=== PATIENT | male | born 1980 | race Caucasian/White ===

== ENCOUNTER 2016-09-25 18:00 | Emergency (ER) | payer OTHER, BC ==
[~2016-09-25] VITALS: Ht 180.3 cm; Wt 67.1 kg
[2016-09-25] MEDS ORDERED: PENTASA500 MG PO (18:12)
== END 2016-09-25 18:34 | disposition home or self-care (01) ==
LOC: ED 18:00
DX: Z04.3 Encounter for examination and observation following other accident (principal); Z88.8 Allergy status to other drugs, medicaments and biological substances; Z79.899 Other long term (current) drug therapy; V89.2XXA Person injured in unspecified motor-vehicle accident, traffic, initial encounter
CPT/HCPCS: 99282